=== PATIENT | female | born 1955 | race Caucasian/White ===

== ENCOUNTER 2018-11-15 10:29 | Emergency (ER) | payer SELFPAY ==
--- NOTE | 2018-11-15 19:21 | RAD ---
RIGHT KNEE FOUR VIEWS: 11/15/18 A comminuted fracture of the patella is present. Joint fluid is present as expected. The distal femur and proximal tibia both appear normal. The knee joint space is normal in width. IMPRESSION: Comminuted patellar fracture. Code T POS: HOME
== END 2018-11-15 11:53 | disposition home or self-care (01) ==
LOC: BURERS 10:29
DX: S82.041A Displaced comminuted fracture of right patella, initial encounter for closed fracture (principal); I10 Essential (primary) hypertension; F17.210 Nicotine dependence, cigarettes, uncomplicated; Z79.899 Other long term (current) drug therapy; W19.XXXA Unspecified fall, initial encounter